=== PATIENT | female | born 1970 | race Caucasian/White ===

== ENCOUNTER 2017-07-21 05:55 | Day surgery (SDC) | payer OTHER ==
[~2017-07-21] VITALS: Ht 149.9 cm; Wt 60.3 kg
[2017-07-21] VITALS (13 sets, daily range): BP systolic 117–158; BP diastolic 61–82; PULSE 46–64; RESP 11–26; Ht 149.9 cm; Wt 60.3 kg
[2017-07-21] MEDS ORDERED: CYAN500T46 PO (06:53)
[2017-07-21] MEDS ORDERED: FER325 PO (06:53)
[2017-07-21] MEDS ORDERED: PROPOFOL 40 ML ONE (06:54)
[2017-07-21] MEDS ORDERED: MIDAZOLAM 1 MG/ML 2 ML INJ ONE (06:54)
[2017-07-21] MEDS ORDERED: FENTAnyl 50 MCG/ML VIAL ONE (06:54)
[2017-07-21] MEDS ORDERED: LIDOCAINE 2% (SDV) 5 ML INJ ONE (06:54)
[2017-07-21] MEDS ORDERED: ONDANSETRON 4 MG INJ ONE (06:55)
[2017-07-21] MEDS ORDERED: DEXAMETHASONE 4 MG/ML 1 ML INJ ONE (06:55)
[2017-07-21] MEDS ORDERED: KETOROLAC 30 MG INJ ONE (06:55)
[2017-07-21] MEDS ORDERED: FAMOTIDINE 20 MG INJ ONE (06:55)
[2017-07-21] MEDS ORDERED: ROCURONIUM 50 MG INJ ONE (07:00)
[2017-07-21] MEDS ORDERED: SUCCINYLCHOLINE CHLORIDE 100 MG/5 ML SYG IV ONE (07:00)
[2017-07-21] MEDS ORDERED: CEFAZOLIN 1 GM INJ ONE (07:00)
[2017-07-21 07:10] LABS: ADD UMIC NO; UR ASCORBIC ACID NEGATIVE (NEGATIVE); UR BILIRUBIN (Dip) NEGATIVE (NEGATIVE); UR BLOOD (Dip) NEGATIVE (NEGATIVE); UR CLARITY CLEAR (CLEAR); UR COLOR YELLOW (YELLOW); UR GLUCOSE (Dip) NEGATIVE (NEGATIVE); UR KETONES (Dip) NEGATIVE (NEGATIVE); UR LEUKOCYTE ESTERASE (Dip) NEGATIVE Leu/ul (NEGATIVE); UR NITRITE (Dip) NEGATIVE (NEGATIVE); UR SPECIFIC GRAVITY (Dip) 1.017 (1.003-1.030); UR TOTAL PROTEIN (Dip) NEGATIVE (NEGATIVE); UR UROBILINOGEN (Dip) NEGATIVE (NEGATIVE)
[2017-07-21] MEDS ORDERED: HYDROmorphONE (0.2 MG/ML) 10ML SYG IV PRN ×3 (07:30→08:30)
[2017-07-21] MEDS ORDERED: ONDANSETRON 4 MG INJ IV PRN (07:30)
[2017-07-21] MEDS ORDERED: KETOROLAC 30 MG INJ IV PRN (07:30)
[2017-07-21] MEDS ORDERED: FENTAnyl 50 MCG/ML VIAL IV PRN ×3 (07:30→08:30)
[2017-07-21] MEDS ORDERED: morphine (1 MG/ML) 10ML SYRINGE IV PRN (07:30)
[2017-07-21] MEDS ORDERED: MEPERIDINE 25 MG INJ IV PRN ×2 (07:30→08:30)
--- NOTE | 2017-07-21 07:38 | HPN ---
Date/Time of Note Date/Time of Note DATE: 07/21/17 TIME: 07:37 Interval H&P Admission Note Pt. seen H&P reviewed: No system changes MK ELIZABETH MD Jul 21, 2017 07:38
[2017-07-21] MEDS ORDERED: DIPHENHYDRAMINE 50 MG INJ IV PRN (08:30)
[2017-07-21] MEDS ORDERED: SUGAMMADEX SODIUM 200 MG/2 ML VIAL IV ONE (08:32)
--- NOTE | 2017-07-21 08:52 | SIPON ---
Date/Time of Note Date/Time of Note DATE: 07/21/17 TIME: 08:49 Operative Report Preoperative Diagnosis menometrorrhagia Postoperative Diagnosis see pathology report Operation/Procedure Performed HYSTEREROSCOPY [facility] ENDOMETRIAL CURETTAGE Surgeon see signature line bookkeeping assistant GUERRERO GARZA FROM [employer] Anesthesia: general Estimated blood loss: minimal Transfusion Required none Specimen ECC ENDOMETRIAL CURETTINS Grafts/Implants none Complications none MK ELIZABETH MD Jul 21, 2017 08:52
--- NOTE | 2017-07-21 08:53 | PD.PPDC ---
ADVERTISING COLUMNIST Discharge Instruction Diagnosis Final Diagnosis: MENOMETRORRHAGIA Condition Patient Condition: Stable Diet Diet: Resume Regular Diet Activity/Restrictions Activity: May Shower Restrictions: No Sexual Activity Nothing in the Vagina No [place] No Tampons, douche Follow-up Follow-up with Physician: 2, Week/Weeks Return to clinic for HOME HEALTH SPEECH THERAPIST Instructions: Fever greater than 101 [place] Worsening abdominal pain Excessive Vaginal Bleeding More than 2 pads per hour Unable to tolerate diet MK ELIZABETH MD Jul 21, 2017 08:53
[2017-07-22] MEDS ORDERED: LACTATED RINGER'S 1,000 ML IV* SCH (12:00)
--- NOTE | 2017-07-22 17:45 | OPR ---
DATE OF OPERATION: 07/21/2017 PREOPERATIVE DIAGNOSIS: Menometrorrhagia. POSTOPERATIVE DIAGNOSIS: See pathological report. NAME OF PROCEDURE: Hysteroscopy and dilation and curettage. ANESTHESIA: General. ANESTHESIOLOGIST: Dr. Gibson. SURGEON: Hubert Kern MD DRYING MACHINE TENDER: Dede and . ESTIMATED BLOOD LOSS: Minimum. PROCEDURE: Under appropriate induction of general anesthesia, the patient was placed in dorsal lith otomy position. Perineal area and vagina were prepped and draped in usual aseptic manner. On inspe ction, external genitalia revealed no gross abnormality. On bimanual examination, uterus felt to be normal size and consistency, and there was no palpable adnexal pathology. Weighted speculum was in troduced into the vagina. Cervix was identified which was grasped with a single-tooth tenaculum and endocervical curettage was done which obtained very scanty tissue which was sent to pathology. The cavity was sounded which is 8.5 cm. Os was dilated to 6. The hysteroscope was introduced into the uterine cavity and shows the fundus and both ostium and endocervical canal which all show no abnorm al finding. Soft tissue blade was introduced through the scope, and the entire uterine cavity was c uretted and the tissue was obtained in the retrieval bottle. Fluid deficit was 220 mL. Estimated b lood loss minimum. The patient withstood the procedure well, sent to recovery room after all of the instruments were removed from the operative field. Dictated By: HUBERT KLEIN/ALISSA Conf#: [id number] DID#: [id number]
== END 2017-07-21 11:40 | disposition home or self-care (01) ==
LOC: SDS 05:55
PROVIDERS: ATTEND Obstetrics & Gynecology
DX: N92.1 Excessive and frequent menstruation with irregular cycle (principal)
CPT/HCPCS: 58558; 81003; 88305; J0690; J2250; J3010; Z7512; Z7610; J1100; J1885; J2405